=== PATIENT | female | born 1930 | race Caucasian/White ===

== ENCOUNTER 2017-12-08 01:09 | Inpatient (IN) | payer MEDICARE, OTHER ==
[2017-12-08] MEDS ORDERED: Nitroglycerin 2% OINT* 1 GM PAK TOPICAL ONE (01:38)
[2017-12-08] MEDS ORDERED: Aspirin 81 mg CHEW TAB* 81 MG TAB.CHEW PO ONE (01:38)
[2017-12-08 02:11] LABS: ABS Basophils 0 10^3/ul (0-0.2); ABS Eosinophils 0 10^3/ul (0-0.6); ABS Lymphocytes 0.5 10^3/ul (1.0-4.8); ABS Monocytes 0.2 10^3/ul (0-0.8); ABS Neutrophils 7.7 10^3/ul (1.5-7.7); ABS Nucleated RBC 0 10^3/ul; Eosinophil % 0 % (0-6); Hematocrit 42 % (35-47); Hemoglobin 14.4 g/dl (12.0-16.0); Lymphocyte % 6.1 % (25-47); Mean Corpuscular HGB Conc 34 g/dl (31-36); Mean Corpuscular Hemoglobin 32 pg (27-31); Mean Corpuscular Volume 93 fL (80-97); Mean Platelet Volume 8.1 um3 (7.4-10.4); Nucleated Red Blood Cells % 0; Platelet Count 247 10^3/ul (150-450); Red Blood Count 4.53 10^6/ul (4.00-5.40); Red Cell Distribution Width 15 % (10.5-15); White Blood Count 8.5 10^3/ul (3.5-10.8)
[2017-12-08 02:19] LABS: INR 0.86 (0.77-1.02)
[2017-12-08 02:28] LABS: EGFR Non-African American 61.3 (>60)
--- NOTE | 2017-12-08 03:46 | ED ---
Roly Bagley Tiffany, scribed for Abbey Wu MD on 12/08/17 at 0137 . HPI Chest Pain - HPI Summary HPI Summary: 87 year old F BIBA to [facility] complains of mid-sternal chest pain at 00:00 today, which lasted one hour and has since resolved. Describes pain as sharp. Does not radiate. Symptoms aggravated by nothing. Symptoms alleviated by nothing. Denies dizziness, syncope. EMS reports bradycardic episode en route. - History of Current Complaint Chief Complaint: EDChestPainROMI Time Seen by Provider: 12/08/17 01:19 Hx Obtained From: Patient Onset/Duration: Resolved Timing: Lasting Hours - 1 Chest Pain Location: Mid Sternal Character: Sharp/Stabbing Aggravating Factor(s): Nothing Alleviating Factor(s): Nothing Associated Signs and Symptoms: Positive: Negative - dizziness, syncope - Allergy/Home Medications Allergies/Adverse Reactions: Allergies Allergy/AdvReac Type Severity Reaction Status Date / Time No Known Allergies Allergy Verified 12/08/17 01:12 PMH/Surg Hx/FS Hx/Imm Hx Previously Healthy: No Endocrine/Hematology History: Reports: Hx Thyroid Disease Cardiovascular History: Reports: Hx Hypotension Denies: Hx Hypertension, Hx Myocardial Infarction Respiratory History: Reports: Hx Pneumonia Musculoskeletal History: Reports: Hx Arthritis Sensory History: Reports: Hx Cataracts Opthamlomology History: Reports: Hx Cataracts Neurological History: Reports: Other Neuro Impairments/Disorders - HX OF DISC COMPRESSION LUMBAR AREA, sciatica Psychiatric History: Reports: Hx Depression - Cancer History Hx Chemotherapy: No Hx Radiation Therapy: No - Surgical History Surgery Procedure, Year, and Place: Cataracts Infectious Disease History: No Infectious Disease History: Denies: Traveled Outside the [place] in Last 30 Days - Family History Known Family History: Positive: Hypertension - Mother, Other - Mother stroke, depression. Father leukemia. Sister deperssion, lung CA - Social History Lives: [facility] Hx Substance Use: No Substance Use Type: Reports: None Hx Tobacco Use: No Smoking Status (MU): Never Smoked Tobacco Review of Systems Positive: Chest Pain - since resolved, Other - bradycardic episode Neurological: Negative - Dizziness Negative: Syncope All Other Systems Reviewed And Are Negative: Yes Physical Exam - Summary Physical Exam Summary: VITAL SIGNS: Reviewed. GENERAL: Patient is a well-developed and nourished female who is lying comfortable in the stretcher. Patient is not in any acute respiratory distress. HEAD AND FACE: No signs of trauma. No ecchymosis, hematomas or skull depressions. No sinus tenderness. EYES: PERRLA, EOMI x 2, No injected conjunctiva, no nystagmus. EARS: Hearing grossly intact. Ear canals and tympanic membranes are within normal limits. MOUTH: Oropharynx within normal limits. NECK: Supple, trachea is midline, no adenopathy, no JVD, no carotid bruit, no c- spine tenderness, neck with full ROM. CHEST: Symmetric, no tenderness at palpation LUNGS: Clear to auscultation bilaterally. No wheezing or crackles. CVS: Bradycardia ABDOMEN: Soft, non-tender. No signs of distention. No rebound no guarding, and no masses palpated. Bowel sounds are normal. EXTREMITIES: FROM in all major joints, no edema, no cyanosis or clubbing. NEURO: Alert and oriented x 3. No acute neurological deficits. Speech is normal and follows commands. SKIN: Dry and warm Triage Information Reviewed: Yes Vital Signs On Initial Exam: Initial Vitals Temp Pulse Resp BP Pulse Ox 98.6 F 68 22 187/93 98 12/08/17 01:12 12/08/17 01:12 12/08/17 01:12 12/08/17 01:12 12/08/17 01:12 Vital Signs Reviewed: Yes Diagnostics - Vital Signs Vital Signs Temp Pulse Resp BP Pulse Ox 12/08/17 01:12 98.6 F 68 22 187/93 98 - Laboratory Result Diagrams: 12/08/17 02:02 12/08/17 02:02 Lab Statement: Any lab studies that have been ordered have been reviewed, and results considered in the medical decision making process. - EKG 0121 Cardiac Rate: NL - 66 BPM EKG Interpretation: Second deg AV block. [place] type II. LBBB. Reading from EKG /rhthymic strip Chest Pain Course/Dx - Course Course Of Treatment: 87 year old F BIBA to [facility] complains of mid-sternal chest pain at 00:00 today. Bloodwork obtained. EKG/CXR obtained. In ED course, patient given aspirin and nitroglycerin. Spoke with Dr. Parker, hospitalist, who agrees to admit patient for furhter evaluation. - Diagnoses Provider Diagnoses: Second degree AV block, Chest pain - Provider Notifications Discussed Care Of Patient With: Chago Parker Time Discussed With Above Provider: 02:55 Instructed by Provider To: Other - Dr. Parker, hospitalist, agrees to admit patient Discharge - Sign-Out/Discharge Documenting (check all that apply): Discharge/Admit/Transfer - Admit to Dr. Parker, hospitalist - Discharge Plan Condition: Stable Disposition: ADMITTED TO [facility] Referrals: Mason Mcclure MD [Primary Care Provider] - The documentation as recorded by the Roly gee Tiffany accurately reflects the service I personally performed and the decisions made by Bryce rivera Abdul, MD.
[2017-12-08] MEDS ORDERED: Acetaminophen TAB* 325 MG PO PRN ×2 (04:54→05:09)
[2017-12-08] MEDS ORDERED: Ondansetron INJ* 2 MG/ML VIAL IV PRN (04:54)
[2017-12-08] MEDS ORDERED: HYDROcodone/ACETAMIN 5-325 MG* 1 TAB PO PRN (05:09)
[2017-12-08] MEDS ORDERED: Magnesium Hydroxide LIQ* 30 ML UDC PO PRN (05:09)
--- NOTE | 2017-12-08 07:36 | RAD ---
INDICATION: Chest pain COMPARISON: July 05, 2017 TECHNIQUE: An AP portable view obtained at 0200 hours is submitted. FINDINGS: Bones/Soft Tissues: There are no acute bony findings. There is overlying chest leads with an external pacer pad. Cardiomediastinal: The cardiomediastinal silhouette is normal. Lungs: There are no infiltrates. There is a reticulonodular pattern appearing unchanged Pleura: There are no pleural effusions. Other: None IMPRESSION: MILD DIFFUSE RETICULONODULAR LUNG PATTERN, UNCHANGED.
[2017-12-08] MEDS: Heparin VIAL(*) 5000 UNITS/ML VIAL (FIVE THOUSAND) SUBCUT SCH ×3 (07:42→20:08)
[2017-12-08] MEDS: Polyethylene Glycol 3350* 17 GM PACKET PO SCH (07:43)
[2017-12-08] MEDS: predniSONE TAB* 5 MG PO SCH (07:43)
[2017-12-08] MEDS: Levothyroxine TAB* 50 MCG TAB PO SCH (07:43)
[2017-12-08] MEDS ORDERED: Ibuprofen TAB* 400 MG PO PRN (09:18)
[2017-12-08] MEDS ORDERED: Acetaminophen TAB* 325 MG PO ONE (10:00)
--- NOTE | 2017-12-08 11:47 | HP ---
CC: Dr. Mcclure* ADMISSION HISTORY AND PHYSICAL: DATE OF ADMISSION: 12/08/17 PRIMARY CARE PROVIDER: Dr. Mcclure. HEALTHCARE PROXY: Her daughter. CODE STATUS: Full. SOURCE OF INFORMATION: History obtained from interview with the patient and her daughter. RELIABILITY: Good. CHIEF COMPLAINT: Chest pain. HISTORY OF PRESENT ILLNESS: This is an 87-year-old female with past medical history of hypothyroidism, depression, and sciatica that is a resident of [facility] in her usual state of health, ambulates with a walker, went to bed around 10 p.m. the night prior to presentation, woke up around 11:30 p.m. with the pain in her chest described as stabbing, slightly off the left of midline, 7 /10, nonradiating that lasted for about 45 to 60 minutes before resolution. It was not associated with shortness of breath, diaphoresis, lightheadedness, nausea, vomiting, or syncope. She had no preceding illnesses including fevers, chills, nausea, vomiting, shortness of breath, or GI symptoms, travel or recent rashes. She does ambulate with a walker and sometimes outside. Has had no significant exposure to nature or ticks. She notes that her ability to ambulate is largely limited by her sciatica which she received an epidural injection of steroids on the day of presentation. EMS was activated for chest pain at [facility]. There was report of heart rate dipping to the 30s, resolving back to the 50s en route without intervention. When seen by this author, the patient was chest pain free and had no complaints. PAST MEDICAL HISTORY: Includes osteopenia, hypothyroidism, depression, sciatica , constipation, history of mumps and rubella as a child. MEDICATIONS: Home medications include: 1. Acetaminophen 325 mg every 4 hours as needed. 2. Prednisone 10 mg daily; she has been part of a taper for her sciatica over the last 1 to 2 weeks, she cannot identify how long. 3. Naproxen 220 mg twice daily. 4. Calcium with vitamin D and vitamin K 1 to 2 tabs daily. 5. MiraLAX 17 g daily. 6. Mirtazapine 15 mg at bedtime. 7. Levothyroxine 50 mcg daily. 8. Hydrocodone with acetaminophen 5/325 every 4 hours as needed for pain. 9. Magnesium hydroxide 30 mL daily as needed. 10. Artificial tears 1 drop b.i.d. as needed. ALLERGIES: No known drug allergies. FAMILY HISTORY: Mother with hypertension. Father with leukemia. SOCIAL HISTORY: Lives in [facility]. No tobacco or alcohol use. Uses walker to ambulate. REVIEW OF SYSTEMS: As per HPI. Otherwise all other systems negative. PHYSICAL EXAMINATION GENERAL: Younger than stated age, in reverse Trendelenburg, interactive, pleasant, in no apparent distress. VITAL SIGNS: When seen by this author, 148/82, heart rate 66, respiratory rate is 16, 96% on room air. T-max in the emergency room is 98.6. HEENT: Oropharynx is clear. She has moist mucous membranes. Sclerae are anicteric. LUNGS: Clear to auscultation. HEART: She has irregular rhythm marked by frequent dropped beats. She has 2/6 early systolic ejection murmur in the right upper sternal border and a 2/6 diastolic murmur in the left lower sternal border. ABDOMEN: Soft, nontender, and nondistended. EXTREMITIES: Warm and well perfused. She has very trace lower extremity edema. NEUROLOGIC: She is alert and oriented x3. Cranial nerves II through XII are intact. PSYCH: She has no apparent anxiety, agitation, or depression. DIAGNOSTIC STUDIES/LAB DATA: Labs reviewed, notable for troponin 0.03 on presentation. BNP 143. TSH 0.70. BUN 23, creatinine 0.87. INR is 0.8. White blood cell count 8.5, hemoglobin 14.4, and platelets 247. Data reviewed, EKG notable for left bundle branch block, no prior for comparison. Mobitz type 2 heart block. ASSESSMENT AND PLAN: This is an 87-year-old female relatively healthy prior to tonight, woke up with substernal chest pain, found with Mobitz type 2 heart block. 1. Mobitz type 2. Concern for underlying ischemic event in the setting of chest pain preceding presentation to [facility], currently with pads on and will admit to the ICU. Repeat troponin now and again in 3 hours as her first troponin was quite proximal to her chest pain. Continue with aspirin in the morning, Cardiology consultation. Lyme has been collected. TSH normal. Potassium within normal limits. Likely need pacer if it does not resolve. No history of AV nathan blockade in her medications. 2. Chest pain again. Again, concern for ischemia. The patient has left bundle branch block without prior for comparison. I am concerned it will be difficult to get records from Dr. Mcclure' office during the 08 of December today. She is chest pain free. Trend troponins, fasting lipids, now monitor on telemetry in the ICU. 3. Sciatica. Continue with home steroids. 4. Depression. Continue with mirtazapine at bedtime. 5. DVT prophylaxis. Heparin subcu. [id number]/[facility]PS #: [id number] [facility]ENTER[facility]ined[facility]
--- NOTE | 2017-12-08 11:56 | CONS ---
CC: Dr. Cho CARDIOLOGY CONSULT REPORT: DATE OF CONSULT: 12/08/17 INDICATION FOR CONSULT: Chest pain, abnormal EKG. HISTORY OF PRESENT ILLNESS: The patient is an 87-year-old female with history of hypothyroidism, pal pitations, recent sciatica, who came to the emergency room because of chest pain. The patient states that she had an injection into her back yesterday for her sciatic pain. Last night, she started exp eriencing chest pain. It was sort of in the center of her chest. It did not radiate. It was mild in severity. She rated it about 4/10. She did not have any nausea or vomiting associated with it. Sh e did not have any diaphoresis. The discomfort lasted about half an hour and the attendants at [facility] suggested she come to the emergency room. Reportedly on transport from [facility], she had an episode o f bradycardia down to 30 beats per minute. I do not have the telemetry strips associated with that. Her EKG in the emergency room showed normal sinus rhythm with left bundle branch block and occasiona l non-conducted P waves. It looks like second-degree heart block type 1. Her CA interval is shorter after the dropped beat. In the hospital, she did have occasional drop ped beats though these were non-conducted premature atrial contractions. Since speaking with the patient, she denies any significant episodes of palpitations. She denies any syncope. She denies any lightheadedness. The patient has not been very active recently because of her sciatic pain. In the hospital, her EKG did not show any significant changes. Her troponin level s were negative x2. TSH level was normal at 1.7. PAST MEDICAL HISTORY: Significant for palpitations, occasional shortness of breath, hypothyroidism. OUTPATIENT MEDICATIONS: 1. Magnesium as directed. 2. Naprosyn 220 mg b.i.d. 3. Levothyroxine 50 mcg a day. 4. Calcium carbonate. 5. Acetaminophen as needed. ALLERGIES: No known drug allergies. FAMILY HISTORY: Showed no early coronary artery disease or arrhythmias. SOCIAL HISTORY: She is . She lives at [facility]. Again, she used to be pretty active, but rece ntly because of her sciatic pain, has been inactive. She denies any tobacco or alcohol use. REVIEW OF SYSTEMS: Per intake sheet. PHYSICAL EXAM: Height is 5 feet 4 inches, weight 154 pounds. Temperature 99.1, heart rate is 70, bl ood pressure 148/77, respiratory rate is 28, oxygen saturation 95% on room air. Sclerae anicteric. Oropharynx is pink without erythema. Carotids are 2+ without bruits. JVD is normal. Thyroid is norm al. Cardiac Exam: S1, S2 without any murmurs, rubs, or gallops. Lungs are clear to auscultation tamia aterally. There is no dullness to percussion. Abdomen is soft, nontender, and nondistended with nor moactive bowel sounds. Extremities showed no edema. She has 2+ pulses throughout. The patient was in bed, so full gait analysis could not be done. She moves all 4 extremities equally. DIAGNOSTIC STUDIES/LAB DATA: CBC within normal limits. Chemistries within normal limits. BUN 23, c reatinine 0.8. Troponins are negative at 0.03 x2. Total cholesterol 210 with an LDL of 99. TSH is 0.7. EKG shows normal sinus rhythm with non-conducted P wave consistent with second- degree heart block ty pe 1. Preliminary echo report shows normal LV size and systolic function. No significant valvular abnormal ities. The patient had an echocardiogram and a stress test in 2013, both of which were unremarkable. IMPRESSION: This is an 87-year-old female, who was admitted to the hospital with chest pain. Overal l, her chest pain does not seem terribly concerning. The patient's left bundle branch block is new c ompared to 2014. Currently, the patient is pain-free and troponins are negative. At this point, I d o not think any other workup is necessary for the cardiac rhythm. I am not convinced that the patien t needs a pacemaker. PLAN: The patient will undergo a chemical nuclear stress test tomorrow. If anne marie t is unremarkable and unchanged from 2014, I think the patient will be discharged home. I do not thi nk any medication changes are necessary. The patient will follow up with Dr. Cho as an outpatien t. [id number]/[id number] #: [id number]
--- NOTE | 2017-12-08 12:01 | ECHO ---
Patient: JUAN MANUEL SOTOMAYOR I [facility] Rec#: [id number] : 1930 Date: 12/08/2017 Age: 87y Height: 162.6 cm / 64.0 in Weight: 71.7 kg / 158.0 lbs Sex: F BSA: 1.77 Room#: ICU 4 Admit Date#: 12/08/2017 Type: Inpatient Referring: Chago Parker MD Reading: Lyndon Acosta MD Artificial Stone Applicator: Arlene Carpio RN RDCS CC: Mason Mcclure MD Transthoracic Echocardiogram Indication: LBBB, Mobitz II, chest pain BP: 149/86 HR: 68 Rhythm: NSR Findings History: Hypotension, thyroid disease, pneumonia Technical Comments: The study quality is fair. The study is technically limited due to poor parasternal windows. Left Ventricle: The left ventricular chamber size is decreased. Septal wall hypertrophy is observed. Basal septal hypertrophy and systolic anterior motion of the mitral valve are observed creating an outflow tract gradient. Global left ventricular wall motion and contractility are within normal limits. The left ventricle appears hyperdynamic. The estimated ejection fraction is greater than 65%. There is a left ventricular septal wall motion abnormality observed, possibly due to the presence of a left bundle branch block. There is an E to A reversal in the mitral valve flow pattern suggestive of diastolic dysfunction. Left Atrium: The left atrial chamber size is normal. Right Ventricle: The right ventricular chamber size and systolic function are within normal limits. Right Atrium: The right atrial cavity size is normal. Aortic Valve: The aortic valve leaflets are mildly thickened. There is no evidence of aortic regurgitation. There is no evidence of aortic stenosis. Mitral Valve: The mitral valve leaflets are mildly thickened. There is moderate mitral regurgitation. There is no evidence of mitral stenosis. 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 There is mild tricuspid regurgitation. No pulmonary hypertension is noted. There is no tricuspid stenosis. Pulmonic Valve: The pulmonic valve structure is not well visualized. There is a trace pulmonic regurgitation. There is no pulmonic stenosis. Pericardium: There is no significant pericardial effusion. A pericardial fat pad is visualized. Aorta: There is no dilatation of the ascending aorta. There is no dilatation of the aortic arch. There is no dilation of the aortic root. Pulmonary Artery: The main pulmonary artery is not well visualized. Venous: The inferior vena cava appears normal in size. There is a greater than 50% respiratory change in the inferior vena cava dimension. Conclusions Basal septal hypertrophy and systolic anterior motion of the mitral valve are observed creating an outflow tract gradient. Global left ventricular wall motion and contractility are within normal limits. The estimated ejection fraction is greater than 65%. There is a left ventricular septal wall motion abnormality observed, possibly due to the presence of a left bundle branch block. The right ventricular chamber size and systolic function are within normal limits. There is no evidence of aortic stenosis. There is moderate mitral regurgitation. There is mild tricuspid regurgitation. No pulmonary hypertension is noted. There is no significant pericardial effusion. 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.Mild obstruction with peak velocity of 2/2 m/sec Measurements Name Value Normal Range RVDdMajor (2D) 3.4 cm (2.2 - 4.4) RAd ISD 4CH 4.7 cm (3.4 - 4.9) RA (A4C)W 3.9 cm (2.9 - 4.6) IVSd (2D) 1.3 cm (0.6 - 1) LVPWd (2D) 0.9 cm (0.6 - 1) LVIDd (2D) 3.1 cm (3.6 - 5.4) LVIDs (2D) 2.1 cm - LV FS (2D) 32 % (25 - 45) Aortic Annulus 1.8 cm (1.4 - 2.6) Ao root diameter (2D) 2.6 cm (2.1 - 3.5) Ascending Ao 2.5 cm (2.1 - 3.4) Aortic arch 2.5 cm (1.8 - 3.4) LA dimension (AP) 2D 2.5 cm (2.3 - 3.8) LAd ISD 4CH 4.6 cm (2.9 - 5.3) LA ISD 4CH W 3.8 cm (2.5 - 4.5) Name Value Normal Range LA ESV SP 4CH (A/L) 36 ml - LA ESV SP 2CH (A/L) 30 ml - LA ESV BP (A/L) 35 ml - LA ESV BP (A/L) index 19.6 ml/m2 - LA ESV SP 4CH (MOD) 32 ml - LA ESV SP 2CH (MOD) 29 ml - Name Value Normal Range MV E-wave Vmax 0.58 m/sec - MV deceleration time 342 msec - MV A-wave Vmax 1 m/sec - MV E:A ratio 0.57 ratio - LV septal e' Vmax 0.05 m/sec - LV lateral e' Vmax 0.07 m/sec - LV E:e' septal ratio 11.6 ratio - LV E:e' lateral ratio 8.3 ratio - Name Value Normal Range AV Vmax 2.4 m/sec - AV VTI 55.6 cm - AV peak gradient 23 mmHg - AV mean gradient 16 mmHg - LVOT Vmax 2.1 m/sec - LVOT VTI 46.3 cm - LVOT peak gradient 18 mmHg - LVOT mean gradient 10.5 mmHg - SANTOSH Vmax 0.52 m/sec - Name Value Normal Range TR Vmax 2.2 m/sec - TR peak gradient 19 mmHg - RAP 3 mmHg - RVSP 22 mmHg - Name Value Normal Range PV Vmax 1.3 m/sec -
[2017-12-08] MEDS: Acetaminophen TAB* 325 MG PO PRN ×2 (13:16→19:46)
--- NOTE | 2017-12-08 14:19 | PN ---
Subjective Date of Service: 12/08/17 Interval History: Pt c/o R sciatica pain, no more CP Objective Active Medications: Acetaminophen (Tylenol Tab*) 650 mg PO Q4H PRN PRN Reason: FEVER/PAIN Last Admin: 12/08/17 13:16 Dose: 650 mg Hydrocodone Bitart/Acetaminophen ([place] 5-325 Tab*) 1 tab PO Q4H PRN PRN Reason: PAIN Aspirin (Aspirin 81 Mg Chew Tab*) 81 mg PO DAILY [facility] Heparin Sodium (Porcine) (Heparin Vial(*)) 5,000 units SUBCUT Q8HR [facility] Last Admin: 12/08/17 13:16 Dose: 5,000 units Levothyroxine Sodium (Synthroid Tab*) 50 mcg PO DAILY@0600 [facility] Last Admin: 12/08/17 07:43 Dose: 50 mcg Magnesium Hydroxide (Milk Of Magnesia Liq*) 30 ml PO DAILY PRN PRN Reason: CONSTIPATION Mirtazapine (Remeron Tab*) 15 mg PO BEDTIME [facility] Ondansetron HCl (Zofran Inj*) 4 mg IV Q4H PRN PRN Reason: NAUSEA/VOMITING Polyethylene Glycol/Electrolytes (Miralax*) 17 gm PO DAILY [facility] Last Admin: 12/08/17 07:43 Dose: 17 gm Prednisone (Deltasone Tab*) 10 mg PO DAILY [facility] Last Admin: 12/08/17 07:43 Dose: 10 mg Vital Signs - 8 hr 12/08/17 12/08/17 12/08/17 06:15 06:19 06:30 Temperature Pulse Rate 68 68 Respiratory 20 18 27 Rate Blood Pressure 161/92 151/80 (mmHg) O2 Sat by Pulse 96 93 Oximetry 12/08/17 12/08/17 12/08/17 06:45 07:00 07:15 Temperature Pulse Rate 66 71 69 Respiratory 17 20 26 Rate Blood Pressure 130/71 120/66 148/77 (mmHg) O2 Sat by Pulse 92 92 95 Oximetry 12/08/17 12/08/17 12/08/17 07:36 08:00 09:00 Temperature 99.1 F Pulse Rate 80 70 Respiratory 26 22 Rate Blood Pressure (mmHg) O2 Sat by Pulse 96 94 Oximetry 12/08/17 12/08/17 12/08/17 09:23 09:30 09:31 Temperature Pulse Rate 69 73 Respiratory 19 17 22 Rate Blood Pressure 149/86 147/81 (mmHg) O2 Sat by Pulse 93 94 Oximetry 12/08/17 12/08/17 12/08/17 09:45 10:00 10:15 Temperature Pulse Rate 68 69 67 Respiratory 20 17 17 Rate Blood Pressure 142/83 152/90 151/80 (mmHg) O2 Sat by Pulse 91 92 93 Oximetry 12/08/17 12/08/17 12/08/17 10:30 10:32 10:36 Temperature Pulse Rate 76 80 77 Respiratory 21 17 22 Rate Blood Pressure 180/98 184/98 189/122 (mmHg) O2 Sat by Pulse 95 97 96 Oximetry 12/08/17 12/08/17 12/08/17 10:39 10:45 10:50 Temperature Pulse Rate 74 71 Respiratory 16 19 16 Rate Blood Pressure 172/93 167/92 (mmHg) O2 Sat by Pulse 95 96 Oximetry 12/08/17 12/08/17 12/08/17 11:00 11:15 11:26 Temperature 98.9 F Pulse Rate 73 71 Respiratory 25 23 Rate Blood Pressure 140/77 130/72 (mmHg) O2 Sat by Pulse 95 95 Oximetry 12/08/17 12/08/17 12/08/17 11:30 11:45 12:00 Temperature Pulse Rate 73 69 66 Respiratory 22 19 21 Rate Blood Pressure 128/59 116/58 117/56 (mmHg) O2 Sat by Pulse 94 95 94 Oximetry 12/08/17 12/08/17 12/08/17 12:15 12:30 12:34 Temperature Pulse Rate 63 63 Respiratory 23 18 17 Rate Blood Pressure 110/52 114/57 (mmHg) O2 Sat by Pulse 93 92 Oximetry 12/08/17 12/08/17 12/08/17 12:45 13:00 13:15 Temperature Pulse Rate 62 67 66 Respiratory 21 20 22 Rate Blood Pressure 107/47 101/50 121/68 (mmHg) O2 Sat by Pulse 92 93 94 Oximetry 12/08/17 12/08/17 12/08/17 13:30 13:45 14:00 Temperature Pulse Rate 67 65 67 Respiratory 18 21 16 Rate Blood Pressure 113/59 102/51 115/55 (mmHg) O2 Sat by Pulse 96 94 94 Oximetry Oxygen Devices in Use Now: None Appearance: 87 yo f in nAD, AAOx3 Eyes: No Scleral Icterus, PERRLA Ears/Nose/Mouth/Throat: NL Teeth, Lips, Gums, Mucous Membranes Moist Neck: NL Appearance and Movements; NL JVP, Trachea Midline Respiratory: Symmetrical Chest Expansion and Respiratory Effort, Clear to Auscultation Cardiovascular: RRR, - - 3/6 PRATIK at apex Abdominal: NL Sounds; No Tenderness; No Distention, No Hepatosplenomegaly Lymphatic: No Cervical Adenopathy Extremities: No Edema, No Clubbing, Cyanosis Skin: No Rash or Ulcers, No Nodules or Sclerosis Neurological: Alert and Oriented x 3, NL Muscle Strength and Tone Result Diagrams: 12/08/17 02:02 12/08/17 02:02 Assess/Plan/Problems-Billing Assessment: 87 yo f with h/o recent steroid injection for R sciatica presents with CP - Patient Problems (1) Chest pain Comment: trops neg. appreciate Dr. Acosta's consult for pharmacologic stress test in AM (2) Bradycardia Comment: with Mobitz type 1 block (as per d/w Dr. Acosta) so far no need for pacer, no further bradycardia noted cont telem Lyme serology pending (3) Sciatic leg pain Comment: s/p steroid injection cont acetaminophen and Prednisone will order PT eval (4) DVT prophylaxis Comment: HSQ Status and Disposition: inpatient
[2017-12-08] MEDS ORDERED: Mirtazapine TAB* 15 MG PO SCH (21:00)
[2017-12-09] MEDS: Acetaminophen TAB* 325 MG PO PRN ×2 (00:18→05:30)
[2017-12-09] MEDS: Heparin VIAL(*) 5000 UNITS/ML VIAL (FIVE THOUSAND) SUBCUT SCH ×2 (05:31→13:35)
[2017-12-09] MEDS: Levothyroxine TAB* 50 MCG TAB PO SCH (05:32)
[2017-12-09] MEDS: Polyethylene Glycol 3350* 17 GM PACKET PO SCH (08:57)
[2017-12-09] MEDS: predniSONE TAB* 5 MG PO SCH (08:57)
[2017-12-09] MEDS ORDERED: Aspirin 81 mg CHEW TAB* 81 MG TAB.CHEW PO SCH (09:00)
[2017-12-09] MEDS ORDERED: Aminophylline IV* 25 MG/ML 10 ML VIAL ONE (11:48)
[2017-12-09] MEDS ORDERED: Regadenoson* 0.4 MG/5 ML SYRINGE ONE (11:48)
--- NOTE | 2017-12-09 13:34 | RAD ---
HISTORY: CHEST PAIN COMPARISONS: None TECHNIQUE: A one-day stress/rest myocardial perfusion study was performed, with pharmacologic stress. The stress portion was monitored by Dr. Holguin. Gated SPECT imaging was performed, with CT-based attenuation correction DOSE: Stress: Technetium 99m tetrofosmin, 25.7 millicuries, injected at 12:12 PM on December 09, 2017 Rest: Technetium 99m tetrofosmin, 10.6 millicuries, injected at 60 5:00 AM on December 09, 2017 Pharmacologic agent: Lexiscan FINDINGS: CARDIAC MONITORING: Left bundle branch block without change during stress EF: 80% TID: 0.8 MOTION: Normal motion, with normal wall thickening. PERFUSION: There are no fixed or reversible perfusion defects. OTHER: None IMPRESSION: NO FIXED OR REVERSIBLE PERFUSION DEFECTS. ASSESSMENT: LOW RISK. Based on imaging criteria from ACC/AHA 2002. Guideline Update for the Management of Patient's with Chronic Stable Angina, table 23. Noninvasive Risk Stratification.
[2017-12-09 15:27] VITALS: BP 151/73
--- NOTE | 2017-12-10 10:20 | DS ---
CC: Dr. Mcclure* DISCHARGE SUMMARY: DATE OF ADMISSION: 12/08/17 DATE OF DISCHARGE: 12/09/17 HISTORY: This 87-year-old woman presented with chest pain. She was in the usual state of health until she woke up about 11:30 p.m. with a stabbing pain to the left of the midline, less than 45 to 60 minutes, has resolved spontaneously. She never had this before. She had no further pain after being admitted to the hospital. She notes she had an epidural spinal injection that day, this is not the first one for her. The rest of the history and physical is detailed in the admission note. The patient was admitted to the telemetry floor. She had two troponin levels, both of which were within normal limits. She had an echocardiogram, which showed moderate mitral regurgitation. She had an easily audible 3/6 systolic murmur at the left axillary line. Stress test was done the following morning, which showed no evidence of ischemia or infarction. She was seen in consultation by Dr. Acosta. It was noted she had left bundle branch block, which is new compared to her prior EKG in 2013. She had a nonconductive P- wave consistent with second-degree heart block type 1. Dr. Acosta recommended followup with her primary care physician and no medication changes. FINAL DIAGNOSES: 1. Atypical chest pain. 2. Arthritis/sciatica. 3. Depression. 4. Hypothyroidism. DISCHARGE MEDICATIONS: 1. Magnesium hydroxide liquid 30 mL daily p.r.n. 2. Mirtazapine 15 mg at bedtime. 3. Prednisone 10 mg daily. 4. Polyethylene glycol 17 g daily. 5. Naproxen 220 mg b.i.d. 6. Levothyroxine 50 mcg daily. 7. Hydrocodone/acetaminophen one every 4 hours p.r.n. 8. Artificial tears b.i.d. both eyes p.r.n. 9. Calcium, vitamin D, vitamin K1 chewable tablets. 10. Acetaminophen 325 mg every 4 hours p.r.n. [id number]/[facility] #: [id number] [facility]
== END 2017-12-09 16:22 | DRG 313 ==
LOC: ED 01:09 → ICU 04:54 → MEDTELE 15:54
PROVIDERS: ADMIT Internal Medicine; ATTEND Internal Medicine
PROC: 4A12XM4 Monitoring of Cardiac Stress, External Approach (ICD-10-PCS; principal; 2017-12-09)
DX: R07.89 Other chest pain (principal); I44.7 Left bundle-branch block, unspecified; I34.0 Nonrheumatic mitral (valve) insufficiency; I44.1 Atrioventricular block, second degree; M19.90 Unspecified osteoarthritis, unspecified site; F32.9 Major depressive disorder, single episode, unspecified; E03.9 Hypothyroidism, unspecified; R00.1 Bradycardia, unspecified; M54.31 Sciatica, right side; M85.80 Other specified disorders of bone density and structure, unspecified site; Z79.52 Long term (current) use of systemic steroids; Z82.49 Family history of ischemic heart disease and other diseases of the circulatory system; Z80.6 Family history of leukemia; Z98.42 Cataract extraction status, left eye; Z98.41 Cataract extraction status, right eye; Z82.3 Family history of stroke; Z81.8 Family history of other mental and behavioral disorders; Z80.1 Family history of malignant neoplasm of trachea, bronchus and lung
CPT/HCPCS: 36415; 71045; 78452; 80053; 80061; 83605; 83735; 83880; 84443; 84484; 85025; 85610; 85730; 86618; 93005; 93017; 93306; 99285; A9270-GY; A9502; G8978-GP-CI; G8979-GP-CI; G8980-GP-CI; J0280; J1644; J2785; J7512